=== PATIENT | male | born 1995 | race Caucasian/White ===

== ENCOUNTER 2017-11-07 12:17 | Emergency (ER) | payer SELFPAY ==
[~2017-11-07] VITALS: Ht 182.9 cm; Wt 63.5 kg
[2017-11-07 12:17] VITALS: BP_SYST 109
[2017-11-07] MEDS ORDERED: ACETAMINOPHEN 500 MG TABLET ONE (12:28)
[2017-11-07] MEDS: DEXAMETHASONE SOD PHOSPHATE 10 MG/ML VIAL IM ONE (12:45)
[2017-11-07] MEDS: PENICILLIN G BENZATHINE 1.2 MMU/2 ML SYR IM ONE (12:48)
[2017-11-07 13:40] VITALS: BP_SYST 110
== END 2017-11-07 13:40 | disposition home or self-care (01) ==
LOC: SED 12:17
DX: J02.0 Streptococcal pharyngitis (principal); R03.0 Elevated blood-pressure reading, without diagnosis of hypertension
CPT/HCPCS: 36415; 86403; 87081; 96372; 99284; J0561; J1100